=== PATIENT | female | born 1985 | race Caucasian/White ===

== ENCOUNTER 2023-09-22 10:16 | Emergency (ER) | payer OTHER ==
[~2023-09-22] VITALS: Ht 162.6 cm; Wt 117.9 kg
[2023-09-22 10:44] VITALS: BP 141/88
[2023-09-22] MEDS ORDERED: PRENATAL TABLE1 EAC2 PO (10:50)
[2023-09-22 11:36] LABS: Source, Urine Clean Catch
[2023-09-22 11:44] LABS: Appearance, Urine Hazy (Clear); Bilirubin, Urine Neg (Neg); Blood, Urine Neg (Neg); Color, Urine Yellow (P-Yellow); Glucose Qualitative, Urine Neg (Neg); Ketones, Urine Neg (Neg); Leukocyte Esterase, Urine Neg (Neg); Nitrite, Urine Neg (Neg); Protein, Urine Neg (Neg); Specific Gravity, Urine 1.025 (1.003-1.022); Urobilinogen, Urine NORM (Normal)
[2023-09-22 11:51] LABS: Bacteria Mod /hpf; Red Blood Cells, Urine 0-2 /hpf (0-2); Squamous Epithelial Cells Many /hpf (Few)
[2023-09-22 11:52] LABS: Amorphous Light (0-Heavy)
== END 2023-09-22 12:08 | disposition home or self-care (01) ==
LOC: ER 10:16
PROVIDERS: Physician Assistant
DX: O99.891 Other specified diseases and conditions complicating pregnancy (principal); R10.32 Left lower quadrant pain; Z3A.19 19 weeks gestation of pregnancy; Z79.899 Other long term (current) drug therapy; X50.0XXA Overexertion from strenuous movement or load, initial encounter
CPT/HCPCS: 76815; 81001; 87086; 99284-25